=== PATIENT | female | born 1945 | race African-American/Black ===

== ENCOUNTER 2017-06-20 17:40 | Emergency (ER) | payer MEDICARE, BC ==
[~2017-06-20] VITALS: Ht 162.6 cm; Wt 78.0 kg
[2017-06-20 18:05] VITALS: BP 146/84
[2017-06-20] MEDS ORDERED: Lidocaine 1% MPF 10mg/ml 5ml INJ ONE (18:30)
[2017-06-20] MEDS ORDERED: Bacitracin Oint UD TOPIC ONE (18:30)
[2017-06-20] MEDS ORDERED: Tetanus/Diptheria/Pertussis Vaccine 0.5ml Syr IM ONE (18:30)
[2017-06-20] MEDS ORDERED: BACITRACIN15 GM TOPIC (19:17)
[2017-06-20] MEDS ORDERED: IBUPROFEN600 MG ORAL (19:17)
[2017-06-20 19:29] VITALS: BP 146/84
--- NOTE | 2017-06-20 20:28 | Emergency Room Report ---
History of Present Illness General Chief Complaint: Laceration Source: Patient Present Illness HPI The patient is a 72-year-old female presenting for a laceration of the left middle finger which occurred prior to arrival. She states that she was cooking and the knife slipped. She noticed pain and bleeding to the area. Pain is now a 3/10 dull ache and does not radiate from the injury site. She denies any numbness or tingling. Pain worse with movement and touch. Last tetanus shot is unknown. She denies any other symptoms Allergies: Coded Allergies: No Known Allergies (Unverified , 06/20/17) Patient History Past Medical History: see triage record Pertinent Family History: none Last Menstrual Period: N/A Reviewed Nursing Documentation: PMH: Agreed, PSxH: Agreed Nursing Documentation-PMH Hx Hypertension: Yes Review of Systems All Other Systems: negative except mentioned in HPI Physical Exam Vital Signs Date Time Temp Pulse Resp B/P Pulse Ox O2 Delivery O2 Flow Rate FiO2 06/20/17 17:59 98.1 60 16 146/84 97 Room Air Sp02 EP Interpretation: reviewed, normal General Appearance: no apparent distress, alert, GCS 15, non-toxic Head: normocephalic, atraumatic Eyes: bilateral eye PERRL, bilateral eye normal inspection ENT: hearing grossly normal, normal pharynx, no angioedema, normal voice Neck: full range of motion, supple/symm/no masses Musculoskeletal: back normal, gait/station normal, normal range of motion, tender - Over the L 3rd finger laceration site Neurologic: alert, oriented x3, responsive, motor strength/tone normal, sensory intact, speech normal Psychiatric: judgement/insight normal, memory normal, mood/affect normal, no suicidal/homicidal ideation Skin: laceration - 3cm linear laceration to the L 3rd finger palmar surface between DIP and PIPJ Procedures Splinting Splinting : Consent: Verbal Location: L 3rd finger Pre-Made Type: metal Splint: finger Pre-Proc Neuro Vasc Exam: normal Post-Proc Neuro Vasc Exam: normal Patient Tolerated: Well Complications: None Laceration/Wound Repair Laceration/Wound Repair : Consent: Verbal Wound Location: upper extremity Wound's Depth, Shape: superficial, linear Wound Length (cm): 3 Wound Explored: clean Irrigated w/ Saline (ccs): 100 Betadine Prep?: Yes Anesthesia: 1% Lidocaine Volume Anesthetic (ccs): 5 Wound Debrided: minimal Wound Repaired With: sutures Suture Size/Type: 5:0, proline Number of Sutures: 5 Layer Closure?: No Sterile Dressing Applied?: Yes Splint Applied?: Yes Type of Splint Applied: metal finger Sling Applied?: No Patient Tolerated: Well Complications: None Medical Decision Making PA Attestation is my supervising physician. Patient management was discussed with my supervising physician Diagnostic Impression: Primary Impression: Laceration ER Course The patient is a 72-year-old female presenting for a laceration of the left middle finger Ddx considered include but not limited to fracture, tendon/ligament injury, avulsion, nerve damage PE: The patient is a 72-year-old female presenting for a laceration of the left middle finger. Full AROM. SILT. The wound was irrigated with normal saline and cleaned with betadine. A 27g needle was used to administer 5mL of lidocaine w.o epi for digital block. 5 sutures were placed with 5-0 prolene. The wound was well approximated and the patient tolerated the procedure well. The wound was then cleaned and bacitracin was applied. A metal finger splint was applied The patient will continue to keep the wound clean and dry and will followup with PMD. Suture instructions provided. ER precautions are given Last Vital Signs Date Time Temp Pulse Resp B/P Pulse Ox O2 Delivery O2 Flow Rate FiO2 06/20/17 19:29 98.1 16 146/84 97 Room Air 06/20/17 17:59 60 Status: improved Disposition: HOME, SELF-CARE Condition: Improved Scripts Bacitracin (Bacitracin) 28.4 Gm Oint...g. 1 APPLIC TOPIC THREE TIMES A DAY, #28 GM Prov: TERPARAMJITSWATHI P.A. 06/20/17 Ibuprofen* (MOTRIN*) 600 Mg Tablet 600 MG ORAL Q8H Y for For Pain, #30 TAB 0 Refills Prov: TERZIANSWATHI P.A. 06/20/17 Referrals: NON PHYSICIAN (PCP) Patient Instructions: Laceration Care, Adult Additional Instructions: I discussed my findings with the patient. All questions and concerns have been answered. Treatment and medication compliance have been addressed. I advised the patient that they need to follow up with PMD in 5-7 days for wound check and suture removal. If you are unable to see PMD, return to the ED in 5-7 days. Return to ED if pain remains or worsens, you notice discharge from the wound, the wound continues to bleed, the suture/s fall out, you notice a fever or chills, or for any reason. Patient is advised to keep the wound clean and apply an antibacterial ointment. Patient verbalized understanding of discharge instructions. SWATHI VIRK Jun 20, 2017 20:27
== END 2017-06-20 19:30 | disposition home or self-care (01) ==
LOC: EMR 18:30
DX: S61.213A Laceration without foreign body of left middle finger without damage to nail, initial encounter (principal); Z23 Encounter for immunization; W26.0XXA Contact with knife, initial encounter; Y93.G3 Activity, cooking and baking; Y92.9 Unspecified place or not applicable; I10 Essential (primary) hypertension
CPT/HCPCS: 29130; 90471; 90715; 96372

== ENCOUNTER 2017-07-01 19:38 | Emergency (ER) | payer MEDICARE, BC ==
[~2017-07-01] VITALS: Ht 154.9 cm; Wt 77.1 kg
[~2017-07-01 19:38] MED LIST: BACITRACIN15 GM TOPIC; IBUPROFEN600 MG ORAL
[2017-07-01 20:17] VITALS: BP 137/84
[2017-07-01 21:07] VITALS: BP 132/78
--- NOTE | 2017-07-02 14:24 | Emergency Room Report ---
History of Present Illness General Chief Complaint: General Complaint Source: Patient Present Illness HPI [id number] walk-in with suture removal Was here previously for laceration Per EMR: "Skin: laceration - 3cm linear laceration to the L 3rd finger palmar surface between DIP and PIPJ" Denies fever/chills Healing well 5 sutures were placed Allergies: Coded Allergies: No Known Allergies (Unverified , 06/20/17) Patient History Past Medical History: see triage record Past Surgical History: none Pertinent Family History: none Social History: Denies: alcohol use, drug use, smoking Last Menstrual Period: none Now: No Immunizations: UTD Reviewed Nursing Documentation: PMH: Agreed, PSxH: Agreed Nursing Documentation-PMH Hx Hypertension: Yes Review of Systems All Other Systems: negative except mentioned in HPI Physical Exam Vital Signs Date Time Temp Pulse Resp B/P Pulse Ox O2 Delivery O2 Flow Rate FiO2 07/01/17 20:00 98.1 57 18 137/84 98 07/01/17 21:07 Room Air Sp02 EP Interpretation: reviewed, normal General Appearance: normal inspection, well appearing, no apparent distress, alert, GCS 15, non-toxic Head: normocephalic, atraumatic ENT: normal ENT inspection, hearing grossly normal, normal voice Neck: normal inspection, full range of motion, supple, no bony tend Respiratory: normal inspection, lungs clear, normal breath sounds, no respiratory distress, no retraction, no wheezing Cardiovascular #1: regular rate, rhythm, no edema Gastrointestinal: normal inspection, normal bowel sounds, non tender, soft, no guarding, no hernia Genitourinary: no CVA tenderness Musculoskeletal: normal inspection, back normal, normal range of motion, Kaitlin' s Sign negative Neurologic: normal inspection, alert, oriented x3, responsive, computer game tester III-XII nml as tested, motor strength/tone normal, speech normal Psychiatric: normal inspection, judgement/insight normal, mood/affect normal Skin: other - Left 3rd finger palmar surface between DIP and PIPJ, 5 sutures. Well healed. No sign of infection Medical Decision Making Diagnostic Impression: Primary Impression: Encounter for removal of sutures ER Course Sutures removed No sign of infection F/up with PMD as needed Last Vital Signs Date Time Temp Pulse Resp B/P Pulse Ox O2 Delivery O2 Flow Rate FiO2 07/01/17 21:07 59 18 132/78 98 Room Air 07/01/17 20:17 98.1 Status: improved Disposition: HOME, SELF-CARE Condition: Improved Referrals: NOT CHOSEN IPA/,REFERRING (PCP) Patient Instructions: Suture Removal, Care After TAMY FLORES M.D. Jul 02, 2017 14:23
== END 2017-07-01 21:20 | disposition home or self-care (01) ==
LOC: EMR 21:14
DX: S61.213D Laceration without foreign body of left middle finger without damage to nail, subsequent encounter (principal); X58.XXXD Exposure to other specified factors, subsequent encounter; Z48.02 Encounter for removal of sutures; I10 Essential (primary) hypertension
CPT/HCPCS: 99281